=== PATIENT | male | born 1945 | race Caucasian/White ===

== ENCOUNTER 2021-08-07 08:47 | Outpatient (CLI) | payer OTHER ==
[~2021-08-07 08:47] MED LIST: ALLEGRA ODT30 MG; CELEXA20 MG; INTESTINEX1 CA1 PO; LIPITOR20 MG; MICARDIS80 MG; SINGULAIR 4MG4 MG; SYNTHROID50 MCG
== END 2021-08-07 09:00 | disposition home or self-care (01) ==
LOC: NUCLEAR 08:47
PROVIDERS: ATTEND Physical Medicine & Rehabilitation
DX: I87.2 Venous insufficiency (chronic) (peripheral) (principal)

== ENCOUNTER 2022-12-08 20:40 | Emergency (ER) | payer OTHER ==
[~2022-12-08] VITALS: Ht 172.7 cm; Wt 88.5 kg
[2022-12-08] MEDS ORDERED: UROXATRAL10 MG (20:57)
== END 2022-12-08 22:10 | disposition home or self-care (01) ==
LOC: ER 20:40
DX: R35.89 Other polyuria (principal)